=== PATIENT | female | born 1955 | race Caucasian/White ===

== ENCOUNTER → 2019-12-29 | Outpatient (CLI) | payer OTHER, MEDICARE ==
[~2019-12-29] MED LIST: DICL75TA2 PO; ESTR1TAB24 PO; FLUO20CA25 PO; L.AC1CAP6 PO; LORA10TA76 PO; MULT-963 PO; OMEP20TA2 PO; SIMV40TA4 PO
--- NOTE | 2019-12-29 14:42 | Diagnostic Imaging Report ---
INDICATION: Left breast density. Patient presents for additional views. Correlation is made with outside screening study from 10/13/2019. Unilateral left 2-D and 3-D diagnostic mammography was performed including spot compression CC, spot compression MLO as well as conventional 90 degree lateral views. Additional views fail to demonstrate a discrete mass. Area of density noted on recent screening study may represent superimposed tissue. There are benign calcifications present. IMPRESSION: BI-RADS 0 No suspicious mammographic abnormality is identified. Even so, sonographic interrogation of the upper and slightly inner left breast approximately 8 to 10 cm from the nipple is recommended and will be performed today. ACR BI-RADS Category 0: Incomplete. (Needs additional imaging evaluation). Result letter will be mailed to the patient. Note: At least 10% of breast cancer is not imaged by mammography. Dictated by: Dictated on workstation # [id number]
--- NOTE | 2019-12-29 16:05 | Diagnostic Imaging Report ---
INDICATION: Left breast density. Correlation is made with diagnostic mammogram earlier the same day as well as outside screening mammogram from 10/13/2019. Sonographic interrogation of the upper and slightly inner left breast was performed 8 to 10 cm from the nipple. No concerning sonographic finding is identified. No solid or cystic mass is detected. Only fibroglandular tissue at this location is seen. IMPRESSION: BI-RADS Category 1 No sonographic abnormalities detected. Patient may return to routine annual screening mammography. ACR BI-RADS Category 1: Negative. Result letter will be mailed to the patient. Note: At least 10% of breast cancer is not imaged by mammography. Dictated by: Dictated on workstation # [id number]
== END ==
LOC: RAD 13:54
PROVIDERS: ATTEND Internal Medicine
DX: N63.22 Unspecified lump in the left breast, upper inner quadrant (principal)
CPT/HCPCS: 76642

== ENCOUNTER 2020-02-10 11:13 | Outpatient (RCR) | payer OTHER, MEDICARE ==
[~2020-02-10] VITALS: Ht 162 cm; Wt 68.1 kg
[~2020-02-10 11:13] MED LIST changes: +BLACK CHERRY PO; +FERR-84 PO; +MULT-1136 PO; +OMEP20CA18 PO
== END 2020-02-13 14:36 | disposition home or self-care (01) ==
LOC: PREOP 11:13
PROVIDERS: ATTEND Internal Medicine
DX: Z01.818 Encounter for other preprocedural examination (principal); Z12.11 Encounter for screening for malignant neoplasm of colon

== ENCOUNTER → 2020-02-13 | Outpatient (CLI) | payer OTHER, MEDICARE | LOC: LABNPT 08:23 | PROVIDERS: ATTEND Internal Medicine | DX: Z12.11 Encounter for screening for malignant neoplasm of colon (principal); Z20.828 Contact with and (suspected) exposure to other viral communicable diseases | CPT/HCPCS: 87635 ==

== ENCOUNTER 2020-02-17 09:18 | Day surgery (SDC) | payer OTHER, MEDICARE ==
--- NOTE | 2020-02-08 16:42 | HISTORY AND PHYSICAL ---
DATE OF SERVICE: HISTORY OF PRESENT ILLNESS: The patient is a 64-year-old white female who reports in late September she had two episodes of abdominal cramping with blood in her stool. She has continued to have some intermittent left lower quadrant abdominal pain that has been mild. There is positive family history for colon cancer in her sister diagnosed around the age of 65 and at the age of 74. The patient last underwent colonoscopy per Dr. Soltiario, a little over 4 years ago in 08/2015. At that time, no colonoscopic abnormalities were noted and no evidence for neoplasia or diverticular disease was identified. The patient denies change in bowel habits, any further diarrhea or constipation. She reports that her weight has been stable and energy level has been stable. 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 She has a history of osteoarthritis. She takes diclofenac for 75 mg b.i.d. and reports reflux symptoms that reflux symptoms that are controlled on omeprazole 20 mg b.i.d. Her only other prescription medication is estradiol 1 mg daily, she has taken since her bilateral salpingo-oophorectomy. PAST SURGICAL HISTORY: Other than TAHBSO, it is pertinent for past cholecystectomy, bilateral rotator cuff surgery and ganglion cyst removal from her left wrist. FAMILY HISTORY: Pertinent for a sister who was diagnosed with colon cancer at the age of 65 and at the age of 74. SOCIAL HISTORY: The patient is retired with no past smoking or significant drinking history. REVIEW OF SYSTEMS: CONSTITUTIONAL: The patient denies night sweats, chills, fever or change in weight. GASTROINTESTINAL: As noted in the HPI. CARDIOVASCULAR: The patient denies chest discomfort, dyspnea on exertion, orthopnea, PND or pedal edema. PULMONARY: The patient denies cough, wheezing or shortness of breath. PHYSICAL EXAMINATION: GENERAL: Reveals a white female appeared to be in no acute distress. HEENT: She has Mallampati 1 oropharyngeal configuration. Sclerae nonicteric. CHEST: Clear. CARDIOVASCULAR: Revealed a regular rate and rhythm without murmur, S3 or S4. ABDOMEN: Soft, supple without mass, organomegaly or tenderness. She has some mild right lower quadrant discomfort to palpation without rebound or guarding. No bruits are noted. No evidence for abdominal aortic aneurysm was noted to palpation. EXTREMITIES: Reveal no cyanosis, clubbing or edema. ASSESSMENT: The patient was set up for diagnostic colonoscopy due to history of crampy abdominal pain with rectal bleeding in addition to a positive family history for colon cancer, index case being her sister diagnosed at the age of 65. Prep instructions were given and questions were answered. Her electronic medical record was reviewed. Job ID: [id number] DocumentID: [id number] Dictated Date: 01/25/2020 16:51:50 Success Coach Date: 01/25/2020 17:28:53 Dictated By: BELLA ROSALES MD
[~2020-02-17] VITALS: Ht 162 cm; Wt 68.1 kg
[2020-02-17] VITALS (9 sets, daily range): BP systolic 101–129; BP diastolic 59–88
[2020-02-17] MEDS ORDERED: LACTATED RINGERS 1,000 ML IV ONE ×2 (09:24→09:45)
[2020-02-17] MEDS ORDERED: MIDAZOLAM 2 MG/2 ML (VERSED) VIAL ONE (09:38)
[2020-02-17] MEDS ORDERED: PROPOFOL INJECTION 50 ML IV ONE (09:38)
[2020-02-17] MEDS ORDERED: LIDOCAINE JELLY 2% 6 ML SYRINGE MM PRN (09:45)
[2020-02-17] MEDS ORDERED: LIDOCAINE JELLY 2% 6 ML SYRINGE ONE (09:58)
--- NOTE | 2020-02-17 10:39 | Anesthesia-General Post-Op ---
MAC Patient Condition Mental Status/LOC: Same as Preop Cardiovascular: Satisfactory Nausea/Vomiting: Absent Respiratory: Satisfactory Pain: Controlled Complications: Absent Post Op Complications Complications None Follow Up Care/Instructions Patient Instructions None needed. Anesthesiology Discharge Order Discharge Order Patient is doing well, no complaints, stable vital signs, no apparent adverse anesthesia problems. No complications reported per nursing. SAM GOOD CRNA Feb 17, 2020 10:39
--- NOTE | 2020-02-17 10:40 | Pre-Op Note & Conscious Sedat ---
Pre-Operative Progress Note H&P Reviewed The H&P was reviewed, patient examined and no changes noted. Date H&P Reviewed: Feb 17, 2020 Time H&P Reviewed: 09:30 Conscious Sedation Pre-Proced ASA Score 2 For ASA 3 and 4: Consider anesthesia and medical clearance. Also, for patients with a history of failed moderate sedation consider anesthesia. Airway Lungs Heart ASA score ASA 1: a normal healthy patient ASA 2: a patient with a mild systemic disease (mid diabetes, controlled hypertension, obesity ASA 3: a patient with a severe systemic disease that limits activity (angina, COPD, prior Myocardial infarction) ASA 4: a patient with an incapacitating disease that is a constant threat to life (CHF, renal failure) ASA 5: a moribund patient not expected to survive 24 hrs. (ruptured aneurysm) ASA 6: a declared brain- patient whose organs are being harvested. For emergent operations, add the letter E after the classification Mallampati Classification Grade 2 Sedation Plan Analgesia, Amnesia, Plan communicated to team members, Discussed options with patient/fam, Discussed risks with patient/fam The patient is an appropriate candidate to undergo the planned procedure, sedation, and anesthesia. The patient immediately re-assessed prior to indication. BELLA ROSALES MD Feb 17, 2020 10:39
--- NOTE | 2020-02-17 15:49 | OPERATIVE REPORT ---
DATE OF SERVICE: COLONOSCOPY SUMMARY INDICATION FOR THE PROCEDURE: Screening colonoscopy. DESCRIPTION OF PROCEDURE: The patient was placed in the left lateral decubitus position. Prior to undergoing colonoscopy, digital rectal evaluation was performed. Anal sphincter tone was normal and the perianal reflexes intact. No abnormalities were noted on digital inspection of anal canal or distal rectal vault. The colonoscope was then inserted into the rectum and under direct visualization advanced to cecum. The cecum was identified by identification of the ileocecal valve and cecal strap. Photographic documentation was obtained. Quality of prep was good. Procedure was done under Diprivan anesthesia. FINDINGS: No evidence for internal or external hemorrhoids and the rectum, sigmoid colon, descending colon, splenic flexure, transverse colon, hepatic flexure and ascending colon were unremarkable. There was a questionable sessile cecal polyp. It was photographed. There was no evidence for ulceration. It was biopsied and cauterized. No other areas of potential neoplasia were identified. No evidence for diverticular disease was noted. ASSESSMENT: Questionable sessile polyp was noted in the cecum and subsequently biopsied and ablated. We will await histopathology reporting before making recommendation for future surveillance colonoscopy. I thank you for the referral of this pleasant lady. Job ID: [id number] DocumentID: [id number] Dictated Date: 02/17/2020 10:56:18 Machine Crater Date: 02/17/2020 15:49:08 Dictated By: BELLA ROSALES MD
== END 2020-02-17 11:25 | disposition home or self-care (01) ==
LOC: ENDO 09:18
PROVIDERS: ATTEND Internal Medicine
DX: K63.5 Polyp of colon (principal); K62.5 Hemorrhage of anus and rectum; Z80.0 Family history of malignant neoplasm of digestive organs; F32.9 Major depressive disorder, single episode, unspecified; M19.90 Unspecified osteoarthritis, unspecified site; Z90.710 Acquired absence of both cervix and uterus; Z90.79 Acquired absence of other genital organ(s); Z90.722 Acquired absence of ovaries, bilateral; Z90.49 Acquired absence of other specified parts of digestive tract; Z79.890 Hormone replacement therapy
CPT/HCPCS: 88305

== ENCOUNTER → 2021-12-17 | Outpatient (CLI) | payer MEDICARE, OTHER ==
--- NOTE | 2021-12-17 14:12 | Diagnostic Imaging Report ---
INDICATION: Subcutaneous nodule in lower leg and pain. FINDINGS: No mass, fluid collection, or subcutaneous distortion in the region of erythema and pain was found. No sonographically apparent foreign body. IMPRESSION: 1. Normal nonfocal targeted soft tissue ultrasound. No mass, fluid collection, or acute abnormality can be detected sonographically. 2. If there is persistent clinically suspicious palpable abnormality requiring further work-up, consider MRI given the normal nonfocal sonographic appearance. Dictated by: Dictated on workstation # [id number]
== END ==
LOC: RAD 13:13
PROVIDERS: ATTEND Nurse Practitioner Family
DX: R22.41 Localized swelling, mass and lump, right lower limb (principal); M79.604 Pain in right leg
CPT/HCPCS: 76881

== ENCOUNTER → 2022-04-01 | Outpatient (CLI) | payer MEDICARE ==
--- NOTE | 2022-04-01 15:10 | Diagnostic Imaging Report ---
Indication: Routine screening. Comparison is made prior mammogram 10/13/2019 and 05/08/2016. 2-D and 3-D bilateral screening mammography was performed with CAD. CAD is utilized. The current study was also evaluated with a Computer Aided Detection (CAD) system. Both breasts are heterogeneously dense, limiting the sensitivity of mammography. The overall parenchymal pattern is stable. No mass or malignant-appearing microcalcifications are seen. Axillae are unremarkable. IMPRESSION: BI-RADS Category 1. No mammographic features suspicious for malignancy are identified. ACR BI-RADS Category 1: Negative. Result letter will be mailed to the patient. Note: At least 10% of breast cancer is not imaged by mammography. Dictated by: Dictated on workstation # [id number]
--- NOTE | 2022-04-01 17:36 | Diagnostic Imaging Report ---
INDICATION: Asymptomatic postmenopausal female. COMPARISON: 05/08/2016. FINDINGS: AP Spine L1-L4: [BMD (g/cm2): 1.271] [T-Score: 0.6] [Z-Score: 2.2] [BMD Previous: 1.65] [BMD % Change: -6.3] LT Hip Neck: [BMD (g/cm2): 1.174] [T-Score: 1.0] [Z-Score: 2.5] LT Hip Total: [BMD (g/cm2):1.234] [T-Score:1.8] [Z-Score: 3.1] [BMD Previous: 1.185] [BMD % Change: 4.6] RT Hip Neck: [BMD (g/cm2):1.180] [T-Score:1.0] [Z-Score:2.6] RT Hip Total: [BMD (g/cm2):1.239] [T-score:1.8] [Z-Score:3.1] [BMD Previous:1.208] [BMD % Change:0.1] *Indicates significant change from prior examination based on 95% confidence level. World Health Organization criteria for BMD interpretation classify patients as Normal (T-score at or above -1.0), Osteopenic (T-score between -1.0 and -2.5) or Osteoporotic (T-score at or below -2.5). LIMITATIONS AND MODIFICATION: None. FRACTURE RISK (FRAX SCORE): The ten year probability of (%): Major Osteoporotic Fracture: [NA] Hip Fracture: [NA] IMPRESSION: 1. Normal bone mineral density. 2. Bone mineral density has decreased by a statistically significant amount, as detailed above. 3. See below National Osteoporosis Foundation guidelines on when to potentially initiate pharmacologic therapy. Based on the National Osteoporosis Foundation Guidelines, pharmacologic treatment should be initiated in any of the following, unless clinical conditions suggest otherwise: * Any patient with prior fragility fracture of the hip or vertebrae. A spine fracture indicates 5X risk for subsequent spine fracture and 2X risk for subsequent hip fracture. * Osteoporosis (T-score <-2.5). * Postmenopausal women and men age 50 and older with low bone mass/osteopenia (T-score between -1.0 and -2.5) by DXA and 10-year major osteoporotic fracture greater than 20% or a 10-year probability of hip fracture greater than 3%. These fracture risks are supplied above in the FRAX score, if applicable. * Clinician judgement and/or patient preferences may indicate treatment for people with 10-year fracture probabilities above or below these levels. Dictated by: Dictated on workstation # [id number]
== END ==
LOC: RAD 14:00
PROVIDERS: ATTEND Nurse Practitioner Family
DX: Z12.31 Encounter for screening mammogram for malignant neoplasm of breast (principal); Z78.0 Asymptomatic menopausal state
CPT/HCPCS: 77063; 77067; 77080

== ENCOUNTER → 2022-05-06 | Outpatient (CLI) | payer MEDICARE ==
--- NOTE | 2022-05-06 15:11 | Diagnostic Imaging Report ---
INDICATION: Chronic low back pain. EXAMINATION: MRI lumbar spine without contrast on 05/06/2022. COMPARISON: 06/03/2016. FINDINGS: There is minimal grade 1 anterolisthesis at L3-L4 and L4-L5. The remaining alignment is maintained. The vertebral body heights are preserved. The tip of the conus is unremarkable in appearance and location. L1-L2: Unremarkable. L2-L3: There is bilateral facet and ligamentum flavum hypertrophy. There is no central stenosis. The neuroforamina appear patent. L3-L4: There is disc desiccation with a broad-based left paracentral bulging disc. Disc protrusion into the left neural foramen is noted. There is bilateral facet and ligamentum flavum hypertrophy with no central stenosis. There is mild bilateral neuroforaminal narrowing. L4-L5: There is disc desiccation with a broad-based bulging disc and a more focal central disc extrusion. There is bilateral facet and ligamentum flavum hypertrophy. The findings cause moderate central stenosis. These findings are new since the previous examination. There is mild narrowing of the left lateral recess. There is minimal bilateral neuroforaminal narrowing. L5-S1: There is disc desiccation with a broad-based bulging disc. Intervertebral disc space narrowing is also noted. The previously noted more focal central disc protrusion is still present with improvement in the previously seen annular tear. There is persistent mild central stenosis with mild narrowing of the left lateral recess. There is bilateral facet and ligamentum flavum hypertrophy. There is moderate bilateral neuroforaminal narrowing. The visualized intra-abdominal structures appear unremarkable. IMPRESSION: Degenerative findings, predominantly from L3-L4 through L5-S1, with new worsened findings noted at the L4-L5 level causing moderate central stenosis and narrowing of the left lateral recess. Mild interval change at L5-S1 is also noted. Dictated by: Dictated on workstation # [id number]
--- NOTE | 2022-05-06 20:34 | Diagnostic Imaging Report ---
INDICATION: Radiculopathy. FINDINGS: Lumbar stature is normal. The alignment anatomic. The disc space is maintained. Adequate range of motion in flexion and extension present without listhesis. IMPRESSION: Frontal and lateral flexion and extension lumbar radiographs were unremarkable. Dictated by: Dictated on workstation # [id number]
== END ==
LOC: RAD 13:27
PROVIDERS: ATTEND Pain Medicine Interventional Pain Medicine
DX: M47.27 Other spondylosis with radiculopathy, lumbosacral region (principal); M48.07 Spinal stenosis, lumbosacral region
CPT/HCPCS: 72100; 72148